=== PATIENT | male | born 1945 | race Caucasian/White ===

== ENCOUNTER 2017-01-12 16:38 | Emergency (ER) | payer MEDICARE, OTHER ==
[2017-01-12 17:03] VITALS: BP 158/85
[2017-01-12] MEDS ORDERED: Sodium Chloride 0.9% 10 ML Syringe FLUSH PRN (17:04)
[2017-01-12] MEDS ORDERED: Sodium Chloride 0.9% 1,000 ML IV SCH (17:15)
[2017-01-12 17:36] LABS: CHLORIDE,CL 104 mmol/L (98-107); SODIUM,NA 141 mmol/L (136-145)
[2017-01-12] MEDS ORDERED: Iopamidol 612 MG/ML 100 ML Bottle IVPUSH ONE (17:46)
[2017-01-12] MEDS ORDERED: Sodium Chloride 0.9% 100 ML IV ONE (17:46)
--- NOTE | 2017-01-12 18:25 | EDM.PDOC ---
ED HPI GENERAL MEDICAL PROBLEM - General Chief Complaint: Gastrointestinal Problem Stated Complaint: left abdominal pain Time Seen by Provider: 01/12/17 16:44 Source of Information: Reports: Patient, Family History Limitations: Reports: No Limitations - History of Present Illness INITIAL COMMENTS - FREE TEXT/NARRATIVE: Patient seen today in the clinic with complaints of left sided abdominal pain that is made worse with eating. He last had a full BM on . Was given a suppository and dulcolax on Thursday with little result on Thursday. He was seen in the clinic this AM, had a flat and upright x-ray that they state showed stool. He was given a fleets enema by his after the visit. THey are here because he is still not having a BM and is passing gas. No nausea, vomiting, diarrhea, no blood in stool, urine, emesis. No headache, short of breath, chest pain. No history of ulcer, has had 2 inguinal hernias. Brother did from colon cancer at the age of 45. Takes Flomax for BPH Onset Date: 01/08/17 Duration: Recurring Location: Reports: Abdomen Quality: Reports: Ache, Pressure Severity: Moderate Improves with: Reports: Medication Worsens with: Reports: Movement Associated Symptoms: Reports: No Other Symptoms - Related Data Allergies Allergy/AdvReac Type Severity Reaction Status Date / Time atorvastatin calcium Allergy Muscle Verified 01/12/17 17:05 [From Lipitor] Aches Home Meds: Home Meds Ascorbate Calcium [Vitamin C] 500 mg PO ASDIRECTED 05/01/15 [History] Aspirin [Halfprin] 1 tab PO DAILY 05/01/15 [History] Calcium Citrate/Vitamin D3 [Citracal + D Maximum Caplet] 1 tab PO ASDIRECTED 04/07 [History] Cholecalciferol (Vitamin D3) [Vitamin D3] 2,000 units PO ASDIRECTED 05/01/15 [ History] Garlic 1 tab PO DAILY 05/01/15 [History] Glucosamine/D3/Boswellia Lacey [Osteo Bi-Flex Caplet] 1 tab PO BID 05/01/15 [ History] Multivit-Min/FA/Lycopene/Lut [Centrum Silver Tablet] 1 tab PO DAILY 05/01/15 [ History] Omeprazole [Prilosec] 1 cap PO DAILY 05/01/15 [History] Rosuvastatin [Crestor] 1 tab PO DAILY 05/01/15 [History] Tamsulosin [Flomax] 1 cap PO DAILY 05/01/15 [History] Past Medical History Other Cardiovascular History: PVC Other Gastrointestinal History: fm hx colon ca, hx colon polyps Other Genitourinary History: ED Other Musculoskeletal History: DJD Social & Family History - Tobacco Use Smoking Status *Q: Never Smoker - Recreational Drug Use Recreational Drug Use: No ED ROS GENERAL - Review of Systems Review Of Systems: See Below Constitutional: Reports: No Symptoms HEENT: Reports: No Symptoms Respiratory: Reports: No Symptoms Cardiovascular: Reports: No Symptoms Endocrine: Reports: No Symptoms GI/Abdominal: Reports: Abdominal Pain, Constipation : Reports: No Symptoms Musculoskeletal: Reports: No Symptoms Skin: Reports: No Symptoms Neurological: Reports: No Symptoms Psychiatric: Reports: No Symptoms Hematologic/Lymphatic: Reports: No Symptoms Immunologic: Reports: No Symptoms ED EXAM, GI/ABD - Physical Exam Exam: See Below Exam Limited By: No Limitations General Appearance: Alert, WD/WN, No Apparent Distress Eyes: Bilateral: EOMI Ears: Normal TMs Throat/Mouth: Normal Inspection, Normal Oropharynx Head: Atraumatic, Normocephalic Neck: Normal Inspection, Supple, Non-Tender, Full Range of Motion Respiratory/Chest: No Respiratory Distress, Lungs Clear, Normal Breath Sounds Cardiovascular: Normal Peripheral Pulses, Regular Rate, Rhythm, No Edema GI/Abdominal: Hypoactive Bowel Sounds (all quadrants), Tympanic Bowel Sounds ( left upper and lower) (Male) Exam: No Hernia Back Exam: Normal Inspection Extremities: Normal Inspection, Normal Range of Motion, Non-Tender, No Pedal Edema, Normal Capillary Refill Neurological: Alert, Oriented, CN II-XII Intact, Normal Cognition, Normal Gait Psychiatric: Normal Affect, Normal Mood Skin Exam: Warm, Dry, Intact, Normal Color Lymphatic: No Adenopathy Course - Vital Signs Last Recorded V/S: Last Vital Signs Temp 36.5 C 01/12/17 16:45 Pulse 100 01/12/17 16:45 Resp 18 01/12/17 16:45 BP 158/85 H 01/12/17 16:45 Pulse Ox 95 01/12/17 16:45 - Orders/Labs/Meds Orders: Active Orders 24 hr Category Date Time Status Abdomen Pelvis w Cont [CT] Stat Exams 05/22/17 17:08 Taken Sodium Chloride 0.9% [Normal Saline] 1,000 ml Med 01/12/17 17:15 Active IV ASDIRECTED Sodium Chloride 0.9% [Saline Flush] Med 01/12/17 17:04 Active 10 ml FLUSH ASDIRECTED PRN Saline Lock Insert [OM.PC] Routine Oth 01/12/17 17:04 Ordered Medication Orders Sodium Chloride (Normal Saline) 1,000 mls @ 999 mls/hr IV ASDIRECTED KAZ Last Admin: 01/12/17 18:11 Dose: 999 mls/hr Sodium Chloride (Saline Flush) 10 ml FLUSH ASDIRECTED PRN PRN Reason: Keep Vein Open Labs: Laboratory Tests 01/12/17 01/12/17 Range/Units 17:05 17:15 WBC 7.2 (4.0-10.0) x10^3/uL RBC 4.89 (4.5-6.0) x10^6/uL Hgb 14.9 (14.0-18.0) g/dL Hct 42.3 (40.0-52.0) % MCV 86.5 (78.0-93.0) fL MCH 30.5 (26.0-32.0) pg MCHC 35.2 (32.0-36.0) g/dL RDW Coeff of [place] 13.0 (10.0-15.0) % Plt Count 257 (130-400) x10^3/uL Neut % (Auto) 67.6 (50.0-80.0) % Lymph % (Auto) 19.7 L (25.0-50.0) % [place] % (Auto) 12.0 H (2.0-11.0) % Eos % (Auto) 0.4 (0.0-4.0) % Baso % (Auto) 0.3 (0.2-1.2) % Sodium 141 (136-145) mmol/L Potassium 3.6 (3.5-5.1) mmol/L Chloride 104 (98-107) mmol/L Carbon Dioxide 23 (21-32) mmol/L BUN 25 H (7-18) mg/dL Creatinine 1.3 (0.70-1.30) mg/dL Est Cr Clr Drug Dosing TNP Estimated GFR (MDRD) 54 Glucose 95 (74-106) mg/dL Calcium 8.8 (8.5-10.1) mg/dL C-Reactive Protein 3.1 H (<=0.9) mg/dL Meds: Medications Generic Name Dose Route Start Last Admin Trade Name Freq PRN Reason Stop Dose Admin Sodium Chloride 1,000 mls @ 999 mls/hr 01/12/17 17:15 01/12/17 18:11 Normal Saline IV 999 mls/hr ASDIRECTED KAZ Administration Sodium Chloride 10 ml 01/12/17 17:04 Saline Flush FLUSH ASDIRECTED PRN Keep Vein Open Discontinued Medications Generic Name Dose Route Start Last Admin Trade Name Freq PRN Reason Stop Dose Admin Sodium Chloride 100 mls @ 2 mls/sec 01/12/17 17:46 01/12/17 18:03 Normal Saline IV 01/12/17 17:47 2 mls/sec ONETIME ONE Administration Iopamidol 100 ml 01/12/17 17:46 01/12/17 18:03 Isovue-300 (61%) IVPUSH 01/12/17 17:47 100 ml ONETIME ONE Administration - Re-Assessments/Exams Free Text/Narrative Re-Assessment/Exam: 01/12/17 19:56 ct is reviewed with Dr. Avery in radiology and no evidence of GI distress. 4 mm obstructing stone to UVJ on left side. Made recommendation for urology and gastroenterology follow up. Pain medications given with znti nausea Departure - Departure Time of Disposition: 19:26 Disposition: Home, Self-Care 01 Condition: good Clinical Impression: Kidney stone on left side - Discharge Information Instructions: Kidney Stones, [id number], Renal Colic, [id number] Additional Instructions: You do have a 4 mm stone located in the UVJ. Your CT examination did not show any constipation, adhesions, obstructions or any other causes for your abdominal pain. You should keep your appointment with Dr. Antunez tomorrow and have a referral to urology and possibly to GI for an upper GI study for your inability to eat. Take your medications as scheduled Please call with any questions or concerns in the meantime. - Problem List & Annotations (1) Kidney stone on left side SNOMED Code(s): 61414002 Code(s): N20.0 - CALCULUS OF KIDNEY Status: Acute Priority: Medium Current Visit: Yes - Problem List Review Problem List Initiated/Reviewed/Updated: Yes - My Orders Last 24 Hours: My Active Orders 01/12/17 17:04 Sodium Chloride 0.9% [Saline Flush] 10 ml FLUSH ASDIRECTED PRN Saline Lock Insert [OM.PC] Routine 01/12/17 17:08 Abdomen Pelvis w Cont [CT] Stat 01/12/17 17:15 Sodium Chloride 0.9% [Normal Saline] 1,000 ml IV ASDIRECTED - Assessment/Plan Last 24 Hours: My Active Orders 01/12/17 17:04 Sodium Chloride 0.9% [Saline Flush] 10 ml FLUSH ASDIRECTED PRN Saline Lock Insert [OM.PC] Routine 01/12/17 17:08 Abdomen Pelvis w Cont [CT] Stat 01/12/17 17:15 Sodium Chloride 0.9% [Normal Saline] 1,000 ml IV ASDIRECTED Assessment:: 4 mm stone to uvj on left side Plan: You do have a 4 mm stone located in the UVJ. Your CT examination did not show any constipation, adhesions, obstructions or any other causes for your abdominal pain. You should keep your appointment with Dr. Antunez tomorrow and have a referral to urology and possibly to GI for an upper GI study for your inability to eat. Take your medications as scheduled Please call with any questions or concerns in the meantime.
[2017-01-12] MEDS ORDERED: Take Home: Ondansetron 4 MG Tab.DIS, 2 Tab Pack PO ONE (19:01)
[2017-01-12] MEDS ORDERED: Take Home: Acetaminophen/oxyCODONE 325-5 MG, 5 Tab Pack PO ONE (19:01)
== END 2017-01-12 19:26 | disposition home or self-care (01) ==
LOC: VM.ED 16:38
DX: N20.2 Calculus of kidney with calculus of ureter (principal); Z91.09 Other allergy status, other than to drugs and biological substances; Z79.82 Long term (current) use of aspirin; Z79.899 Other long term (current) drug therapy
CPT/HCPCS: 74177; 80048; 85025; 86140; 96360; 99284; A9270; J7030; J7050; Q9967

== ENCOUNTER 2020-12-06 08:01 | Day surgery (SDC) | payer MEDICARE, OTHER ==
[~2020-12-06 08:01] MED LIST: Lactated Ringers 1,000 ML IV SCH; Sodium Chloride 0.9% 10 ML Syringe FLUSH PRN
[2020-12-06] MEDS ORDERED: fentaNYL 100 MCG/2 ML SDV ONE (09:03)
[2020-12-06] MEDS ORDERED: Propofol 200 MG/20 ML SDV ONE (09:03)
[2020-12-06 10:38] VITALS: BP 122/69; PULSE 64
--- NOTE | 2020-12-06 12:05 | OR ---
DATE OF SURGERY: 12/06/2020. REFERRING PROVIDER: Dr. Fitch. PRE-OPERATIVE DIAGNOSES: 1. History of colon polyps. Last colonoscopy was in 2014. 2. Positive family history of colon cancer in brother in his early 40s. POST-OPERATIVE DIAGNOSES: 1. 3 mm polyp at 75 cm, removed using cold forceps. 2. Normal-appearing distal ileum. PROCEDURE: Colonoscopy with polypectomy x1 using cold forceps. SURGEON: Todd Noriega M.D. ANESTHESIA: Monitored anesthesia care. BOWEL PREP: Good. Randy is a 75-year-old male who was brought to the endoscopy suite after discussing risks and benefits of the procedure. Informed consent was obtained for conscious sedation and colonoscopy with or without biopsy and/or polypectomy. We also discussed possibility of missed lesions. Pre-procedure exam was unremarkable. IV, oxygen, and monitors were placed. The patient was placed in the left lateral decubitus position. Sedation was administered and a digital rectal exam was performed and unremarkable. Colonoscope was passed into the rectum and slowly advanced all the way to the cecum. Cecum was viewed and photographed. Ileocecal valve was intubated and distal ileum was normal in appearance. The colonoscope was slowly withdrawn and the mucosa was closed observed in a direct circumferential manner. The ascending colon was remarkable for 3 mm polyp at 75 cm, removed using cold forceps. The transverse colon was unremarkable. The descending colon was unremarkable. The sigmoid colon was unremarkable. Retroflexion was performed and rectal mucosa revealed some minimal hemorrhoids, not acutely inflamed. Scope was removed. The patient tolerated the procedure well. The patient was monitored until that baseline status. Discharge instructions were reviewed and the patient was discharged in good condition. COMPLICATIONS: None. TOTAL TIME: 23 minutes. ESTIMATED BLOOD LOSS: Less than 1 mL. RECOMMENDATIONS/FOLLOW-UP: We will await results of path report to determine ideal followup interval. I would like to kindly thank Dr. Fitch for this referral. DMB: 12/06/2020 10:37:44 MODL: 12/06/2020 11:26:39 /[id number]
== END 2020-12-06 11:20 | disposition home or self-care (01) ==
LOC: VM.SDS 08:01
PROVIDERS: ATTEND Family Medicine
DX: Z12.11 Encounter for screening for malignant neoplasm of colon (principal); D12.6 Benign neoplasm of colon, unspecified; K64.9 Unspecified hemorrhoids; E78.5 Hyperlipidemia, unspecified; N52.9 Male erectile dysfunction, unspecified; E78.00 Pure hypercholesterolemia, unspecified; N40.1 Benign prostatic hyperplasia with lower urinary tract symptoms; K21.9 Gastro-esophageal reflux disease without esophagitis; H61.23 Impacted cerumen, bilateral; Z88.8 Allergy status to other drugs, medicaments and biological substances; Z79.82 Long term (current) use of aspirin; Z79.899 Other long term (current) drug therapy; Z86.010 Personal history of colon polyps; Z85.828 Personal history of other malignant neoplasm of skin; Z80.0 Family history of malignant neoplasm of digestive organs; Z98.890 Other specified postprocedural states
CPT/HCPCS: 00812; 88305; J2704; J3010; J7120